=== PATIENT | female | born 1965 | race American Indian/Alaskan Native ===

== ENCOUNTER 2016-11-18 08:10 | Outpatient (CLI) | payer BC ==
--- NOTE | 2016-11-21 07:38 | Vascular Lab Report ---
Left Lower Extremity Venous Duplex Study: Reason for Exam: Pain and swelling of the left lower extremity. Comments on the Right: A limited duplex study was done of the proximal veins of the right lower extremity. All veins visualized are freely compressible without evidence of internal echogenicity. Flow is spontaneous and phasic throughout. No evidence of acute or chronic thrombus is seen in any of the vessels visualized. Comments on the Left: Nonocclusive venous thrombus is noted in the popliteal and femoral veins. The remaining veins visualized are freely compressible without evidence of internal echogenicity. Spontaneous and phasic flow is present proximally. Impression: Chronic deep venous thrombosis in the left lower extremity
== END 2016-11-18 08:11 | disposition home or self-care (01) ==
LOC: VAS 08:10
PROVIDERS: ATTEND Internal Medicine Hematology
DX: I82.502 Chronic embolism and thrombosis of unspecified deep veins of left lower extremity (principal)

== ENCOUNTER 2017-03-24 08:28 | Day surgery (SDC) | payer BC ==
[~2017-03-24 08:28] MED LIST: NACL 0.9% 1000 ML 1,000 ML IV SCH
[2017-03-24 09:23] LABS: Hematocrit 36.5 % (30.3-42.9); Hemoglobin 12.3 gm/dl (10.1-14.3); Mean Corpuscular HGB Conc 34 % (30-34); Mean Corpuscular Hemoglobin 28 pg (28-32); Mean Corpuscular Volume 83 fl (79-97); Platelet Count 199 K/mm3 (140-440); Red Blood Count 4.41 M/mm3 (3.65-5.03); White Blood Count 3.2 K/mm3 (4.5-11.0)
[2017-03-24 09:24] LABS: Red Cell Distribution Width 22.8 % (13.2-15.2)
[2017-03-24] MEDS ORDERED: DECADRON ONE (09:35)
[2017-03-24] MEDS ORDERED: ZOFRAN ONE ×2 (09:35→13:37)
[2017-03-24] MEDS ORDERED: DIPRIVAN 10 MG/ML IV ONE ×2 (09:35→10:39)
[2017-03-24] MEDS ORDERED: SUBLIMAZE ONE (09:35)
[2017-03-24] MEDS ORDERED: XYLOCAINE MPF 2% ONE (09:35)
[2017-03-24 09:40] LABS: Anion Gap 20 mmol/L; BUN/Creatinine Ratio 32.85; Blood Urea Nitrogen 23 mg/dL (7-17); Calcium 9.1 mg/dL (8.4-10.2); Carbon Dioxide 24 mmol/L (22-30); Chloride 100.4 mmol/L (98-107); Glucose 102 mg/dL (65-100); Potassium 4.2 mmol/L (3.6-5.0); Sodium 140 mmol/L (137-145)
[2017-03-24] MEDS ORDERED: HEPARIN/NS 5000 UNIT/500ML(CATH LAB) 1,000 ML IR ONE (09:55)
[2017-03-24] MEDS ORDERED: XYLOCAINE 2% INFILTRATI ONE (09:56)
[2017-03-24] MEDS ORDERED: ANCEF/STERILE WATER 2 GM/20 ML 2 GM/20 ML SYRINGE IV ONE (09:56)
--- NOTE | 2017-03-24 10:01 | Anesthesia Consultation ---
Anesthesia Consult and Med Hx Date of service: 03/24/17 - Airway Anesthetic Teeth Evaluation: Good ROM Head & Neck: Adequate Mental/Hyoid Distance: Adequate Mallampati Class: Class I Intubation Access Assessment: Good - Pulmonary Exam CTA: Yes - Cardiac Exam Cardiac Exam: RRR - Pre-Operative Health Status ASA Pre-Surgery Classification: ASA3 Proposed Anesthetic Plan: General - Pulmonary Hx Smoking: Yes (off & on for 7/8 years) Hx Asthma: No COPD: No Hx Pneumonia: No - Central Nervous System Hx Psychiatric Problems: No - Endocrine Hx End Stage Renal Disease: No - Hematic Hx Anemia: No Hx Sickle Cell Disease: No - Other Systems Hx Cancer: No - Additional Comments Anesthesia Medical History Comments: History of multiple blood clots. No previous anesthesia complications.
--- NOTE | 2017-03-24 10:02 | Anesthesia Day of Surgery ---
Anesthesia Day of Surgery - Day of Surgery Patient Examined: Yes Patient H&P Reviewed: Yes Patient is NPO: Yes
[2017-03-24] MEDS ORDERED: NACL 0.9% 1000 ML 1,000 ML ONE (10:16)
[2017-03-24 10:39] LABS: Anisocytosis 1+; Basophils % (Manual) 0 % (0.0-1.8); Blastocytes % (Manual) 0 %; Eosinophils % (Manual) 0 % (0.0-4.3)
[2017-03-24] MEDS ORDERED: VERSED IV ONE ×2 (10:39→11:49)
[2017-03-24 10:40] LABS: Diff Status Complete; Ovalocytes 1+
[2017-03-24] MEDS: ANCEF/STERILE WATER 2 GM/20 ML 2 GM/20 ML SYRINGE IV NR ×2 (10:48→10:52)
[2017-03-24] MEDS ORDERED: NITROGLYCERIN SYRINGE 3 ML ONE ×2 (10:53→12:26)
[2017-03-24] MEDS ORDERED: CALAN ONE (10:53)
[2017-03-24] MEDS: HEPARIN 10,000 UNITS/10 ML ONE ×2 (10:55→12:12)
[2017-03-24] MEDS ORDERED: TORADOL ONE (12:34)
[2017-03-24] MEDS ORDERED: DILAUDID IV PRN (13:26)
[2017-03-24] MEDS ORDERED: ZOFRAN IV PRN (13:26)
[2017-03-24] MEDS ORDERED: MORPHINE IV PRN (13:26)
[2017-03-24] MEDS ORDERED: NORCO 5/325 PO PRN (13:26)
[2017-03-24] MEDS ORDERED: PHENERGAN PR PRN (13:26)
--- NOTE | 2017-03-24 13:30 | Short Stay Summary ---
Short Stay Documentation Date of service: 03/24/17 - History Principal diagnosis: Symptomatic uterine fibroids H&P: obtained from office - Allergies and Medications Current Medications: Allergies No Known Allergies Allergy (Verified 04/30/14 19:35) Home Medications Medication Instructions Recorded Confirmed Last Taken Type Warfarin Sodium [Coumadin] 7.5 mg PO QHS 30 Days 05/06/14 03/24/17 3 Months Ago Rx Enoxaparin [Lovenox] 100 mg SQ Q12HR 03/24/17 03/24/17 03/24/17 06:00 History Gabapentin [Gabapentin] 300 mg PO TID 03/24/17 03/24/17 1 Week Ago History Hydrochlorothiazide 25 mg PO QDAY 03/24/17 03/24/17 03/24/17 06:00 History [Hydrochlorothiazide] Active Medications Cefazolin Sodium (Ancef/Sterile Water 2 Gm/20 Ml) 2 gm in 20 mls @ 80 mls/hr IV PREOP NR PRN Reason: Protocol Stop: 03/24/17 23:01 Last Admin: 03/24/17 10:52 Dose: 20 mls Sodium Chloride (Nacl 0.9% 1000 Ml) 1,000 mls @ 42 mls/hr IV DIRECT PROSPER - Brief post op/procedure progress note Date of procedure: 03/24/17 Pre-op diagnosis: Symptomatic uterine fibroids Post-op diagnosis: same Procedure: leftg UAE Anesthesia: MAC Surgeon: ZANDRA SANTO Estimated blood loss: minimal Pathology: none Condition: stable - Disposition Condition at discharge: Good Disposition: [id number] TO HOME OR SELFCARE Short Stay Discharge Plan Activity: advance as tolerated Weight Bearing Status: Weight Bear as Tolerated Diet: regular Wound: keep clean and dry, per your surgeon's advice Follow up with: JAZMÍN DUDLEY MD [Primary Care Provider] - 7 Days
[2017-03-24] MEDS ORDERED: DILAUDID ONE (13:37)
--- NOTE | 2017-03-24 13:37 | Operative Report ---
Operative Report Operative Report: EXAM: UTERINE ARTERY EMBOLIZATION CLINICAL INDICATION: SYMPTOMATIC UTERINE FIBROIDS DATE: PROCEDURE: Following an explanation of the risks, benefits and alternatives; written informed consent was obtained. The patient was brought to the angiographic suite and placed in supine position on the examination table. Initial ultrasound evaluation of the wrist demonstrated a patent left radial artery. The left wrist was prepped and draped in the usual sterile fashion. 1 % lidocaine was used for anesthesia. Under ultrasound guidance, the left radial artery was cannulated with a 3-1/2 cm 21-gauge needle. A 0.018 guidewire was advanced centrally and the needle removed. A 5 Danish low-profile sheath was then placed over the guidewire. Following the administration of a radial cocktail, a 4 Danish vertebral catheter and 0.035 guidewire were advanced through the sheath under fluoroscopy. The guidewire and catheter were advanced together under fluoroscopy to the right common iliac artery. Digital subtraction angiography was performed at this point for anatomic localization. Selective cannulation of the right internal iliac artery was performed and additional angiography performed. The origin of the right uterine artery was identified. There is an approximate 75% stenosis at the origin with the uterine artery making a 130 angulation off a dilated anterior division of the internal iliac artery. A variety of catheters and guidewires were utilized including a renegade high flow, J-tipped high flow direction catheter in an attempt to cannulate the origin of the right artery. Ultimately, these attends were unsuccessful. Selective cannulation of the left internal iliac artery was then performed using the 4 Danish vertebral catheter and 0.035 guidewire. Digital subtraction angiography was performed to identify the origin of the left uterine artery. Selective cannulation of the left uterine artery was then performed using a bathroom guidewire and renegade hypo-microcatheter. The guidewire and catheter were advanced to the horizontal portion of the uterine artery and imaging obtained at this point demonstrated nonopacification of this cervical vaginal arteries. There is prompt opacification of the uterus with cross-filling from the left uterine artery. With the catheter tip in position, embolization was performed at this point. Two vials of 500-700 embospheres were then infused under fluoroscopy into the left uterine artery. Postembolization imaging demonstrated appropriate vascular pruning. Following embolization, the catheters, guidewires and she's were removed and hemostasis achieved using manual compression. A sterile dressing was then applied. The patient tolerated the procedure well. There were no immediate post procedure competitions. Sedation was performed by anesthesia services. Continuous cardiopulmonary monitoring was utilized. IMPRESSION: 1) Embolization of left uterine artery as described. 2) Following the patient's postop visit, the patient will be reevaluated in 3 months to determine if there is a need to embolize a right uterine artery
[2017-03-24] MEDS ORDERED: NORCO 5/325 ONE (15:55)
[2017-03-24 16:12] VITALS: BP 149/82
--- NOTE | 2017-03-28 11:25 | Vascular Lab Report ---
MISCELLANEOUS VESSEL IDENTIFICATION: COMMENTS ON THE SCAN: The left radial artery was identified and under real-time ultrasound guidance was cannulated. IMPRESSION: Successful ultrasound guided arterial cannulation.
== END 2017-03-24 16:30 | disposition home or self-care (01) ==
LOC: CATHLABREC 08:28
PROVIDERS: ATTEND Radiology Diagnostic Radiology
DX: D25.9 Leiomyoma of uterus, unspecified (principal); I10 Essential (primary) hypertension; F17.200 Nicotine dependence, unspecified, uncomplicated; Z79.01 Long term (current) use of anticoagulants; Z86.718 Personal history of other venous thrombosis and embolism; Z86.711 Personal history of pulmonary embolism; Z98.890 Other specified postprocedural states; Z79.899 Other long term (current) drug therapy; Z82.49 Family history of ischemic heart disease and other diseases of the circulatory system
CPT/HCPCS: 36247; 36415; 37243; 75736; 75774; 76937; 80048; 85007; 85025; 96374; 96375; C1769; C1887; C1894; J0690; J1170; J1644; J1885; J2250; J2405; J2704; J3010; J7030; Q9967; J1100

== ENCOUNTER 2017-07-31 08:34 | Outpatient (CLI) | payer BC ==
--- NOTE | 2017-08-01 08:11 | Vascular Lab Report ---
Left Lower Extremity Venous Duplex Study: Reason for Exam: Pain and swelling of the left lower extremity. Comments on the Right: A limited duplex study was done of the proximal veins of the right lower extremity. All veins visualized are freely compressible without evidence of internal echogenicity. Flow is spontaneous and phasic throughout. No evidence of acute or chronic thrombus is seen in any of the vessels visualized. Comments on the Left: Chronic nonocclusive thrombus is noted in the popliteal and femoral veins. The remaining veins visualized are freely compressible without evidence of internal echogenicity. Spontaneous and phasic flow is present proximally. Impression: Chronic DVT in the left lower extremity
== END 2017-07-31 08:35 | disposition home or self-care (01) ==
LOC: VAS 08:34
PROVIDERS: ATTEND Internal Medicine Hematology
DX: I82.532 Chronic embolism and thrombosis of left popliteal vein (principal); I82.512 Chronic embolism and thrombosis of left femoral vein